=== PATIENT | male | born 1950 | race Caucasian/White ===

== ENCOUNTER 2017-01-31 08:55 | Day surgery (SDC) | payer MEDICARE, OTHER ==
[~2017-01-31] VITALS: Ht 160 cm; Wt 64.9 kg
[~2017-01-31 08:55] MED LIST: ABILIFY5 MG PO; AMBIEN5 MG PO; CELEXA20 MG PO; CLONAZEPAM0.5 MG PO; LAMICTAL100 MG PO; LIPITOR40 MG PO; LISINOPRIL20 MG PO; OMEPRAZOLE20 M1 PO; PROPRANOLOL HCL10 MG PO; TAMSULOSIN HCL0.4 MG PO; TRAZODONE HCL100 MG PO; WELLBUTRIN XL300 MG PO; ZOFRAN ODT4 MG PO
[2017-01-31] MEDS ORDERED: BUPROPION XL300 MG PO (09:19)
--- NOTE | 2017-01-31 11:34 | NUR ---
01/31/17 1134 Jocelyne Linn 1125 PT ARRIVED IN PACU SLEEPY. ICE APPLIED TO ABD.
[2017-01-31] MEDS ORDERED: NORCO 7.5-3251 EACH PO (11:48)
--- NOTE | 2017-01-31 15:29 | NUR ---
1215: PATIENT BACK IN DAY SURGERY ROOM FROM PACU. VS CHECKED. ABDOMINAL DRESSINGS CDI. SCDs ON. AT BEDSIDE. CALL LIGHT WITHIN REACH. 1320: PATIENT MEDICATED FOR PAIN WITH 2 TABS OF NORCO. PATIENT TOLERATED WATER, PUDDING, AND JELLO. 1405: PATIENT CONTINUES TO C/O 6/10 PAIN IN ABDOMEN. MEDICATED WITH IV DILAUDID. 1425: PATIENT STATES PAIN A LITTLE BETTER AFTER DILAUDID ADMIN. ICE PACK REFILLED. SCANT AMOUNT OF RED DRAINAGE SEEN ON TWO ABDOMINAL DRESSINGS. AT BEDSIDE. SCDs ON. TOLERATING WATER. IV SALINE LOCKED. CALL LIGHT WITHIN REACH. 1520: PATIENT UP TO BATHROOM WITH ASSIST. GAIT STEADY. UNABLE TO VOID. BLADDER SCANNED PT FOR APPROXIMATELY 334 ML. PATIENT STATES HE DOES NOT FEEL LIKE HIS BLADDER IS FULL. STATES HE WANTS TO DRINK MORE WATER AND WAIT TO SEE IF HE CAN VOID LATER.
--- NOTE | 2017-01-31 16:46 | NUR ---
pt chi krause says he hasnt urinated yet. not uncomfortable . bladder scanned 296ml. enc to relax and wait.
--- NOTE | 2017-01-31 17:12 | NUR ---
PT WANTS TO GO HOME. INSTRUCTED IF HE GETS UNCOMFORTABLE AND CANT URINATE HE WILL HAV ETO RETURN TO ED.
--- NOTE | 2017-01-31 17:27 | NUR ---
DR CERVANTES CALLED AND OK TO SEND PT HOME. TO RETURN TO ED IF PROBLEMS URINATING.
--- NOTE | 2017-02-01 11:54 | OR ---
[facility] [address], [place] [address] Signed DATE OF SERVICE: 01/31/2017 PREOPERATIVE DIAGNOSES: Cholecystitis and cholelithiasis. POSTOPERATIVE DIAGNOSES: Cholecystitis with choledocholithiasis. PROCEDURES PERFORMED: Laparoscopic cholecystectomy with intraoperative cholangiogram. ESTIMATED BLOOD LOSS: None. FINDINGS: Jimmie had a very friable gallbladder wall, he had multiple 1-2 mm black gallstones in the gallbladder. The intraoperative cholangiogram also showed several stones in the distal common bile duct. Some contrast did flow into the ampulla and into the duodenum. INDICATIONS: Jimmie is a 66-year-old gentleman who went to the Emergency Room with epigastric abdominal pain and elevated liver function test. Ultrasound showed what was probably a fatty liver and stones within the gallbladder. There seemed to be a 1.5 cm non-shadowing focus in his gallbladder. We looked for that and we never could convince ourselves was such a lesion in the gallbladder. His main bile duct was unremarkable. He was asked to see me with respect to the above. I met with Jimmie in the office and I gave him a brochure on the gallbladder. We discussed the location of function of the gallbladder. We discussed laparoscopic versus open cholecystectomy. He understands the expected intraoperative and postoperative course, the risk related to surgery including, but not limited to bleeding, infection, scarring, change in contour of the skin, damage to bowel, damage to main bile duct, incisional hernias, and possible retained common bile duct stones, requiring ERCP. He had expressed understanding and wished to proceed. PROCEDURE IN DETAIL: Jimmie was taken into the Operating Room and placed in the supine position under general endotracheal tube anesthesia. He was given preoperative antibiotics along with subcutaneous heparin. SCDs were utilized. He was then prepped and draped in the usual sterile fashion. After this, all trocars were placed in their usual positions under direct visualization of camera without difficulty. The gallbladder was grasped and elevated in the right upper quadrant. The findings are as above. We did take pictures throughout for photodocumentation. We found the gallbladder wall to be quite friable and it was easily peeling off the side of the liver. With gentle traction, we did dissect the triangle of BALA. We placed our intraoperative cholangiocatheter into the cystic duct and the intraoperative cholangiogram was performed. After this, the cystic duct stump was secured at the PDS Endoloop and 2 clips were placed on the cystic duct stump to sonja Electronically Signed By: PONCHO CERVANTES MD 02/01/17 1154 PATIENT NAME: JIMMIE CAIN II OPERATIVE REPORT DATE OF : 46 PHYSICIAN: PONCHO CERVANTES MD REPORT #: [id number] REPORT IS CONFIDENTIAL AND NOT TO BE RELEASED WITHOUT AUTHORIZATION [facility] [address], [place] [address] Signed its location. We then carefully and slowly removed the gallbladder from the gallbladder wall with the help of judicious cautery. The gallbladder was then placed into an EndoCatch bag. The right upper quadrant gallbladder fossa was irrigated and suctioned out until clear. We used our laparoscopic suturing device and passed 0 Vicryl suture on either side of the fascia of the subxiphoid trocar site. This was tied down to close this fascia primarily. After this, all the trocars were removed along with the gallbladder. The gallbladder was opened on the back table by a circulating nurse and we found that again it has chronic inflammation and quite friable, there were innumerable small black gallstones. We never found a specific 1.5 cm non-shadowing lesion on the gallbladder wall. We then closed the fascia of the supraumbilical trocar site with interrupted 0 Vicryl sutures. Local anesthetic was injected into all trocar sites. Each trocar site was irrigated and suctioned out until clear. The skin and dermis of each trocar site was closed with interrupted 3-0 subcuticular Monocryl sutures. Dry gauze and tape was then applied. Jimmie was then awakened from his anesthesia, extubated in the OR, and taken to Recovery Room in stable condition. MD SUNG Hawley/Modl /[id number] cc: [place], [place] MD Mell Hawley M.D Electronically Signed By: PONCHO CERVANTES MD 02/01/17 1154 PATIENT NAME: JIMMIE CAIN II OPERATIVE REPORT DATE OF : 46 PHYSICIAN: PONCHO CERVANTES MD REPORT #: [id number] REPORT IS CONFIDENTIAL AND NOT TO BE RELEASED WITHOUT AUTHORIZATION
== END 2017-01-31 17:20 | disposition home or self-care (01) ==
LOC: DS 08:55
PROVIDERS: Colon & Rectal Surgery
PROC: BF13YZZ Fluoroscopy of Gallbladder and Bile Ducts using Other Contrast (ICD-10-PCS; 2017-01-31)
PROC: 0FT44ZZ Resection of Gallbladder, Percutaneous Endoscopic Approach (ICD-10-PCS; principal; 2017-01-31 10:15)
DX: K80.10 Calculus of gallbladder with chronic cholecystitis without obstruction (principal); I10 Essential (primary) hypertension; E78.5 Hyperlipidemia, unspecified; F31.9 Bipolar disorder, unspecified; I34.8 Other nonrheumatic mitral valve disorders; Z79.899 Other long term (current) drug therapy; Z98.890 Other specified postprocedural states; Z82.49 Family history of ischemic heart disease and other diseases of the circulatory system
CPT/HCPCS: 00790; 74300; 88304; J0694; J1644; J1885; J3010; J7120; Q9967

== ENCOUNTER 2017-01-31 23:12 | Emergency (ER) | payer MEDICARE, OTHER ==
[~2017-01-31] VITALS: Ht 160 cm; Wt 64.9 kg
[~2017-01-31 23:12] MED LIST changes: +BUPROPION XL300 MG PO; +NORCO 7.5-3251 EACH PO
[2017-02-02] MEDS ORDERED: PERCOCET 10-321 EACH PO (13:44)
[2017-02-02] MEDS ORDERED: MIRALAX17 GM PO (13:45)
== END 2017-02-01 01:25 | disposition home or self-care (01) ==
LOC: ED 23:12
PROC: 4A0D7LZ Measurement of Urinary Volume, Via Natural or Artificial Opening (ICD-10-PCS; principal; 2017-01-31)
PROC: 0T9B70Z Drainage of Bladder with Drainage Device, Via Natural or Artificial Opening (ICD-10-PCS; principal; 2017-01-31)
DX: R33.9 Retention of urine, unspecified (principal); F41.9 Anxiety disorder, unspecified; Z90.49 Acquired absence of other specified parts of digestive tract; I10 Essential (primary) hypertension
CPT/HCPCS: 51702; 51798; 81001; 99283

== ENCOUNTER 2017-02-01 06:06 | Observation (INO) | payer MEDICARE, OTHER ==
[~2017-02-01] VITALS: Ht 160 cm; Wt 69.1 kg
--- NOTE | 2017-02-02 07:59 | CONS ---
[facility] [address] [place], [place] [address] Signed DATE OF SERVICE: 02/01/2017 REFERRING PHYSICIAN: Dr. Aspen Tello. CHIEF COMPLAINT: Postoperative abdominal pain. HISTORY OF PRESENT ILLNESS: Jimmie is a 76-year-old gentleman, who came to us yesterday for a routine laparoscopic cholecystectomy. He does have several small stones down in his main bile duct. He had been discharged to home, but came back to the emergency room in the middle of night with urinary retention. A Erazo catheter had been inserted. He had gone back home, but unfortunately would only accept 1 hydrocodone tablet 7.5 mg in strength. He would not take two. He was in pain and he and his had been up all night. His had called the ambulance and had him come and bring him back to the emergency room. In emergency room, he was given some Dilaudid, which controlled his pain and he subsequently went to sleep. The ER doctor called me first thing this morning with respect to the above. We decided to bring him back into the hospital for observations. He and his slept all morning. I decided to wait and come in a little later than usual to give them that opportunity to sleep. In the emergency room, we did not repeat any of the lab work or any x-rays at that time. He seems to be much improved at this point. ALLERGIES: None. MEDICATIONS: Abilify, Lipitor, Lamictal, lisinopril, propranolol, trazodone, zolpidem, tamsulosin, omeprazole, clonazepam, bupropion, and [place] 7.5 mg. PAST MEDICAL HISTORY: Peptic ulcer disease, hypertension, anxiety and cholecystitis with choledocholithiasis. PAST SURGICAL HISTORY: Left ankle surgery, right carpal tunnel and laparoscopic cholecystectomy 01/31/2017. SOCIAL HISTORY: He is . Lives with his . Mell Vences is physician's inventory assistant. He prefers the [facility]. He is a retired state attorney. FAMILY HISTORY: None. REVIEW OF SYSTEMS: He had 10 systems reviewed, and the only issues are the urinary tension and his postoperative pain. Of course, he is now worried about his chronic medications. PHYSICAL EXAMINATION: Electronically Signed By: PONCHO CERVANTES MD 02/02/17 0759 PATIENT NAME: JIMMIE CAIN II CONSULTATION DATE OF : 46 PHYSICIAN: PONCHO CERVANTES MD REPORT #: [id number] REPORT IS CONFIDENTIAL AND NOT TO BE RELEASED WITHOUT AUTHORIZATION [facility] [address] [place], [place] [address] Signed VITAL SIGNS: His blood pressure is 127/62, his heart rate is 82, his respiratory rate is 15, his temperature is 98.0. He is 94% on 2 L nasal cannula. GENERAL: Jimmie is a 66-year-old gentleman lying supine in his hospital bed. He is alert, awake and interactive. He is clearly coherent this morning. According to his , he was pretty confused last night. LUNGS: Clear to auscultation. HEART: Regular rate and rhythm. ABDOMEN: Moderately distended, moderately firm, but generally nontender. There was a little bit of dried sanguinous fluid on his umbilical dressing, but otherwise fine. LABORATORY DATA: None. X-RAYS: None. ASSESSMENT AND PLAN: Jimmie is a 66-year-old gentleman who presents after his gallbladder surgery yesterday with retained common bile duct stones. However, some of the contrast did go around the stones. He did have urinary retention and he has a history of prostate cancer. He required a Erazo catheter and we will leave that today. Also, the pain control has been an issue and so we are going to bump him up the [place] 10s and we will encourage him to take 2 tablets if necessary. We will keep him here today and increase his activities, remove his dressings and allow him to take a shower. Tomorrow morning, we will discontinue the Erazo catheter and if he is able to spontaneously void, then we will let him go home. Otherwise, he will need the Erazo catheter reinserted and he will have to follow up with his urologist, Dr. Abel painting in the [facility]. In addition, he will need an outpatient ERCP probably next week some time as well, which we will have to arrange later. He has expressed understanding and agrees with above plan. MD SUNG Hawley/Radhal /[id number] cc: Mell Cervantes MD Electronically Signed By: PONCHO CERVANTES MD 02/02/17 0759 PATIENT NAME: JIMMIE CAIN II CONSULTATION DATE OF : 46 PHYSICIAN: PONCHO CERVANTES MD REPORT #: [id number] REPORT IS CONFIDENTIAL AND NOT TO BE RELEASED WITHOUT AUTHORIZATION
[2017-02-02] MEDS ORDERED: PERCOCET 10-321 EACH PO (13:44)
[2017-02-02] MEDS ORDERED: MIRALAX17 GM PO (13:45)
--- NOTE | 2017-02-08 19:54 | DS ---
[facility] [address] [place], [place] [address] Signed ADMIT DATE: 02/01/2017 DISCHARGE DATE: 02/02/2017 FINAL DIAGNOSES: Postoperative pain. Postoperative urinary retention. Choledocholithiasis. Anxiety. PROCEDURES: Placement of Erazo catheter. HISTORY OF PRESENT ILLNESS: Jimmie is a 66-year-old gentleman who came to us today of admission for his elective gallbladder surgery. Things went well. We can see he has several stones in the distal common bile duct. However, the contrast did flow past the stones. Consequently, we allowed h im to be discharged to home with plans for an outpatient ERCP. He returned later that evening to the emergency room with urinary retention. He does have a history of prostate cancer. He follows along with Dr. Roman in the [facility]. He had a Erazo catheter placed and was discharged back to home from the emergency room. However, at home, he would only take 1 pain pill for the reasons that still are clear. He refuses to take 2 pain pills. Consequently, he was having pain, and finally, his brought him b ack to the emergency room. He was given some Dilaudid and that corrected the pain quite nicely. By that point, it was early in the morning. We went ahead and admitted him for observation. HOSPITAL COURSE: Jimmie was admitted as above and we left his Erazo catheter in for 1 day. We increased him from the hydrocodone 5 mg tablets up to the Percocet 10 mg tablets here in the hospital. Interestingly, he still will only take 1 pain pill at a time. The Percocet 10 mg tablets are lasting him almost 4 hours. In addition, we resumed his earlier regular diet and all his chronic medications. He has done well in that regard. He has been up ambulating and tolerating his diet at this point. He has had a little bit of flatus but no bowel movement. His abdomen is still a li t tle distended. This morning, we are going to remove his Erazo catheter and wait for him to void before he is discharged back to home. We will continue his IV fluids and his current medications and diet throughout the day. We are going to go ahead and give him some Dulcolax by mouth. We will also add some MiraLAX as well. If he is able to spontaneously void later today then, we will be able to discharge him to home. Electronically Signed By: PONCHO CERVANTES MD 02/08/171953 PATIENT NAME: JIMMIE CAIN II DISCHARGE SUMMARY DATE OF : 46 PHYSICIAN: PONCHO CERVANTES MD REPORT #: [id number] REPORT IS CONFIDENTIAL AND NOT TO BE RELEASED WITHOUT AUTHORIZATION [facility] [address] [place], [place] [address] Signed DISCHARGE PLANS AND MEDICATIONS: Jimmie will be discharged home with a prescription for his Percocet 10/325 one to two tablets p.o. q.4-6h. p.r.n. pain. We will dispense 60 tablets with no refills. Once he finishes the Percocet, he can certainly switch over to the hydrocodone. I have also wrote down MiraLAX 17 g p.o. b.i.d. and clear liquids, so he can use that at least while he is taking the pain medication. He will continue his chronic medications at home and a regular diet. He is welcome to shower and bathe as usual. He can walk up and down stairs but he should not do any heavy pushing, pulling, or lifting over about 25 pounds. We are going to make arrangements for him for his outpatient ERCP and he will follow up with Dr. Roman for the prostate cancer. He has expressed understanding and agrees above plan. MD SUNG Hawley/Barb /[id number] cc: MD Mell Hawley Dr. Electronically Signed By: PONCHO CERVANTES MD 02/08/171953 PATIENT NAME: JIMMIE CAIN II DISCHARGE SUMMARY DATE OF : 46 PHYSICIAN: PONCHO CERVANTES MD REPORT #: [id number] REPORT IS CONFIDENTIAL AND NOT TO BE RELEASED WITHOUT AUTHORIZATION
== END 2017-02-02 14:45 | disposition home or self-care (01) ==
LOC: ED 06:06 → MS 06:11
PROVIDERS: ADMIT Colon & Rectal Surgery
DX: G89.18 Other acute postprocedural pain (principal); F41.9 Anxiety disorder, unspecified; R33.8 Other retention of urine; K91.86 Retained cholelithiasis following cholecystectomy; I10 Essential (primary) hypertension; Z87.891 Personal history of nicotine dependence; Z85.46 Personal history of malignant neoplasm of prostate; Z79.899 Other long term (current) drug therapy; Z87.11 Personal history of peptic ulcer disease
CPT/HCPCS: 51798; 96372; 99285; G0378; J1644; J7120

== ENCOUNTER 2022-11-12 06:55 | Day surgery (SDC) | payer MEDICARE, OTHER ==
[2022-11-07 09:10] VITALS: BP 141/73
[~2022-11-12] VITALS: Ht 160 cm; Wt 68.2 kg
[~2022-11-12 06:55] MED LIST changes: +ASPIRIN EC81 MG PO; +ATIVAN1 MG PO; +ATORVASTATIN CA40 MG PO; +C-500500 MG PO; +DOK100 MG PO; +ELIQUIS2.5 MG PO; +FEOSOL325 MG PO; +FIBER625 MG PO; +KRILL OIL 1,001 EAC1 PO; +LAMICTAL200 MG PO; +LASIX40 MG PO; +LIPITOR20 MG PO; +LOPERAMIDE2 MG PO; +METOPROLOL TART25 MG PO; +MIRALAX17 GM PO; +MULTI-DAY PLUS1 EAC1 PO; +PERCOCET 10-321 EACH PO; +PROBIOTIC1 EAC5 PO; -TRAZODONE HCL100 MG PO; +TRAZODONE HCL50 MG PO; +WARFARIN SODIUM2 MG PO; +ZESTRIL20 MG PO
[2022-11-12 07:10] VITALS: BP 133/67
--- NOTE | 2022-11-12 09:32 | NUR ---
11/12/22 0932 Annabella Lau 0915 PT ARRIVED TO PACU ON 3L VIA NC, PT ASLEEP WITH LARGE AMOUNT OF SNORING NOTED. PT HEAD ADJUSTED AND PILLOW MOVED, LESS SNORING NOTED. 09 PT WAKES AND IS REORIENTED TO PACU, PT IS ENCOURAGED TO PASS GAS AND DENIES PAIN AND NAUSEA. 0930 MD AT BEDSIDE TALKING TO PT. PLAN OF CARE DISCUSSED.
[2022-11-12 09:43] VITALS: BP 135/75
--- NOTE | 2022-11-12 10:57 | NUR ---
PT ALERT, ORIENTED AND SUPPORTED BY HER DAMARIS WHO WILL RETURN FOR DC. PT HAS HAD SCOPE PREVIOUS. GAVE ENCOURAGEMENT AND BLESSING. PT REQUESTED PRAYER
--- NOTE | 2022-11-12 13:19 | OR ---
[facility] [address] [place], [place] [address] Signed DATE OF OPERATION: 11/12/2022 SURGEON: Marcel Patel MD PREOPERATIVE DIAGNOSIS: History of polyps greater than five years ago. POSTOPERATIVE DIAGNOSES: 1. Small polyps of cecum and ascending colon and sigmoid colon. 2. Diverticulosis. PROCEDURE: Total colonoscopy to cecum with cold snare polypectomy x1 and cold morcellation polypectomy x5. ANESTHESIA: Intravenous sedation, propofol infusion, William Brody CRNA. Preoperative antibiotic, ampicillin, gentamicin, and a bridge therapy. INDICATION: This 72-year-old white man is a patient of Escobar Wilson. He underwent colonoscopy greater than five years ago by Dr. Francisco Javier Lua, which showed two polyps. He has no family history of colon cancer. He has a distant history (2015) of common bile duct injury during cholecystectomy in [place] requiring advanced reconstructive intervention and prolonged hospitalization. He additionally has underlying probable paroxysmal atrial fibrillation and prior history of mitral valve replacement. He is chronically anticoagulated with Eliquis. He does have diarrhea requiring loperamide. He additionally has had prostate cancer treatments this year including radiation therapy. He is admitted to undergo surveillance colonoscopy. He understands the risk of bleeding, infection, and perforation. He has been initiated on bridge therapy off Eliquis for at least three days as well as preoperative antibiotic ampicillin and gentamicin related to the mitral valve replacement. FINDINGS: The prep was adequate. Complete colonoscopy was undertaken of the cecum. There were small polyps in the proximal ascending colon and the cecum, three of which were able to be excised. The other could not be due to anatomic factors and patient tolerance. Electronically Signed By: MARCEL PATEL MD 11/12/22 1319 PATIENT NAME: DAY CAIN II OPERATIVE REPORT DATE OF : 46 REPORT #: [id number] PHYSICIAN: MARCEL PATEL MD PCP: ESCOBAR WILSON PA-C REPORT IS CONFIDENTIAL AND NOT TO BE RELEASED WITHOUT AUTHORIZATION [facility] [address] [place], [place] [address] Signed There were additionally small polyps of the sigmoid, two of which were hyperplastic, one was adenomatous, excised with cold snare. A biopsy was taken of the cecum to assess for occult colitis. DESCRIPTION OF PROCEDURE: The patient was brought to the surgical endoscopy suite and placed in the lateral decubitus position, given intravenous sedation with propofol infusional technique. Digital rectal examination was normal. An Olympus video colonoscope was passed in the rectum and manipulated throughout the colon ultimately intubating the right colon. Visualization of the cecum was noted. A biopsy forceps was used to biopsy the cecum on the basis of possibility of occult colitis. Various maneuvers including abdominal wall stabilization were used to advance the scope fully into the cecum where a small polyp was noted. Attempts at excising it were interrupted by the patient's activity and ultimately that tiny polyp could not be excised actually. The scope was withdrawn and a small polyp was noted of the ascending colon which was excised with cold morcellation technique. Another small polyp again was not able to be fully excised related to the patient movement, straining and so forth. Ultimately, further attempts at excising the small polyp had to be abandoned on the possibility of hazard with the scope. The scope was then withdrawn and the remaining colon was examined more fully. In the sigmoid, there was a small sessile polyp excised with cold snare technique and passed for pathology and at least two other small hyperplastic appearing polyps of the rectosigmoid. The rectum appeared normal otherwise. The scope was removed and the patient was taken to the recovery room in good condition. CONCLUSION DIAGNOSIS: Multiple polyps and scattered diverticula of sigmoid. PLAN: We would recommend repeat colonoscopy in 1 to 2 years based on known residual tiny polyps of right colon. MD KARINE Doss/MODL /[id number] Electronically Signed By: MARCEL PATEL MD 11/12/22 1319 PATIENT NAME: DAY CAIN II OPERATIVE REPORT DATE OF : 46 REPORT #: [id number] PHYSICIAN: MARCEL PATEL MD PCP: ESCOBAR WILSON PA-C REPORT IS CONFIDENTIAL AND NOT TO BE RELEASED WITHOUT AUTHORIZATION [facility] [address] [place], [place] [address] Signed cc: SHAMAR Cardoso Copies: ~ Electronically Signed By: MARCEL PATEL MD 11/12/22 1319 PATIENT NAME: DAY CAIN DVAID OPERATIVE REPORT DATE OF : 46 REPORT #: [id number] PHYSICIAN: MARCEL PATEL MD PCP: ESCOBAR WILSON PA-C REPORT IS CONFIDENTIAL AND NOT TO BE RELEASED WITHOUT AUTHORIZATION
--- NOTE | 2022-11-12 15:11 | EKG ---
[facility] [address] [facility] [place] [address] Signed Sinus rhythm with premature supraventricular complexes Nonspecific ST abnormality Abnormal ECG When compared with ECG of 07-NOV-2022 08:15, Sinus rhythm has replaced Junctional rhythm ST elevation now present in Inferior leads Confirmed by SHIV ZAPATA MD ([id number]) on 11/12/2022 3:10:51 PM Electronically Signed By: SHIV ZAPATA MD 11/12/22 1511 PATIENT NAME: PAYTONDAY II Electrocardiogram DATE OF : 46 PHYSICIAN: SHIV ZAPATA MD REPORT #: [id number] REPORT IS CONFIDENTIAL AND NOT TO BE RELEASED WITHOUT AUTHORIZATION
== END 2022-11-12 09:55 | disposition home or self-care (01) ==
LOC: OPS 06:55 → DS 06:55 → OPS 08:15 → DS 10:30
PROVIDERS: ATTEND Surgery
PROC: 0DBN8ZZ Excision of Sigmoid Colon, Via Natural or Artificial Opening Endoscopic (ICD-10-PCS; 2022-11-12)
PROC: 0DBH8ZZ Excision of Cecum, Via Natural or Artificial Opening Endoscopic (ICD-10-PCS; 2022-11-12)
PROC: 0DBK8ZZ Excision of Ascending Colon, Via Natural or Artificial Opening Endoscopic (ICD-10-PCS; principal; 2022-11-12 08:15)
DX: Z12.11 Encounter for screening for malignant neoplasm of colon (principal); I48.0 Paroxysmal atrial fibrillation; Z79.01 Long term (current) use of anticoagulants; I10 Essential (primary) hypertension; C61 Malignant neoplasm of prostate; Z86.010 Personal history of colon polyps; Z95.2 Presence of prosthetic heart valve; K57.30 Diverticulosis of large intestine without perforation or abscess without bleeding; D12.2 Benign neoplasm of ascending colon; K63.5 Polyp of colon
CPT/HCPCS: 93005; 93010; J0290; J1580; J2001; J2704

== ENCOUNTER 2023-02-05 05:55 | Day surgery (SDC) | payer MEDICARE, OTHER ==
[2023-02-04 14:17] VITALS: BP 143/76
[~2023-02-05] VITALS: Ht 160 cm; Wt 68.2 kg
[2023-02-05 07:01] VITALS: BP 132/63
--- NOTE | 2023-02-05 07:06 | NUR ---
PT IN OVERALL GOOD SPIRITS. CONSENTED TO PRAYER. PRAYED FOR SUCCESSFUL PROCEDURE AND AWARENESS OF DIVINE PRESENCE.
--- NOTE | 2023-02-05 10:15 | NUR ---
02/05/23 1015 Hue Lozada 1001-PT TO PACU IN SF POSITION. EYES CLOSED. RESPODNS TO VERBAL STIMULI. PT DENIES PAIN AND NAUSEA AND FALLS BACK TO SLEEP. BREATHING EASY AND UNLABORED. SPO2 >95% ON ROOM AIR. 1007-PT SLEEPING COMFORTABLY, WITH SNORING. SPO2 88% WITH SNORING. PT AWAKENS TO LIGHT VERBAL STIMULI AND SPO2 RAISES TO >95%. PT EDUCATED ON POC FOR PACU AND ENCOURAGED TO TAKE DEEP BREATHS. RETURN DEMONSTRATION OBSERVED. 1014- PT AWAKENS SPONTANEOUSLY. BREATHING EASY AND UNLABORED. SPO2 >95% ON ROOM AIR. PT OFFERED SIPS OF WATER.
[2023-02-05 10:48] VITALS: BP 134/57
[2023-02-05 11:20] VITALS: BP 151/67
--- NOTE | 2023-02-05 12:26 | NUR ---
1025: PT RETURNS TO UNIT FROM PACU. AWAKE AND ALERT ON ARRIVAL. HOLDS APPROPRIATE CONVERSATION. VSS, RESP EVEN AND UNLABORED. BREONNA PO AND DENIES NAUSEA. REPORTS 5/10 PAIN LEVEL AND REQUESTS RX. ADMINISTERED ORDERED. REPORTS URGE TO VOID. DANGLES AT THE BEDSIDE. BREONNA WELL, DENIES DIZZINESS AND SOB. USES BEDSIDE URINAL FOR FIRST SUCCESSFUL POSTOP VOID, 100MLS. PT COMFORTABLE IN STRETCHER. DENIES FURTHER NEEDS, CALL LIGHT WITHIN REACH 1120: WATCHES TV IN STRETCHER. VSS, RESP EVEN AND UNLABORED. REPORTS IMPROVED AND TOLERABLE PAIN LEVEL, 3/10. INQUIRES ABOUT DC PAIN RX. NONE WRITTEN BY MD JEMAL. TC PLACED TO JEMAL AND THIS RN TO INSTRUCT PT TO TRY TYLENOL AND MOTRIN FIRST AND IF PAIN IS UNCONTROLLED CALL OFFICE. PT VOICES UNDERSTANDING WHEN DISCUSSED. REPORTS READINESS TO DC. DRESSES INDEPENDENTLY AND NOTIFIED 1155: DC INSTRUCTIONS PROVIDED AND DISCUSSED AND PT VOICES UNDERSTANDING AND DENIES QUESTIONS AND CONCERNS. SL REMOVED WITH CATH TIP INTACT AND PRESSURE APPLIED TO SITE, WNL. WHEELED OFF OF UNIT BY THIS RN. TRANSFERS INTO VEHICLE INDEPENDENTLY AND APPROPRIATELY. NO PHYSICAL S/S OF DISTRESS AT THIS TIME
--- NOTE | 2023-02-06 17:08 | OR ---
[facility] [address] [place], [place] [address] Signed DATE OF OPERATION: 02/05/2023 SURGEON: Soumya Russell MD PREOPERATIVE DIAGNOSIS: Prostate cancer with need for cystoscopy after undergoing brachytherapy seed placement. POSTOPERATIVE DIAGNOSES: 1. Prostate cancer with need for cystoscopy after undergoing brachytherapy seed placement. 2. Normal cystourethroscopy. NAME OF PROCEDURE: Diagnostic cystoscopy. ANESTHESIA: General. ESTIMATED BLOOD LOSS: None. COMPLICATIONS: None. DRAINS: None. INDICATIONS FOR PROCEDURE: Mr. Cain is a 72-year-old gentleman, who was recently diagnosed with prostate cancer. He is currently undergoing transperineal brachytherapy seed placement by Dr. Samuel Wilson. Dr. Wilson has requested that I perform a postprocedural diagnostic cystoscopy to evaluate for any potential radioactive seeds within the bladder or urethra. OPERATIVE FINDINGS: 1. On cystoscopy, there was no evidence of any suspicious masses, lesions, or stones. Bilateral ureteral orifices are in their normal anatomic location effluxing clear urine. More specifically, there is no evidence of any radioactive seed present within the bladder or within the entire length of the urethra. 2. Urethroscopy reveals moderate lateral lobe hypertrophy with no evidence of any significant median lobe, however, there is a small median bar present that is most Electronically Signed By: SOUMYA RUSSELL MD 02/06/23 1708 PATIENT NAME: DAY CAIN II OPERATIVE REPORT DATE OF : 46 REPORT #: [id number] PHYSICIAN: SOUMYA RUSSELL MD PCP: ESCOBAR PERES PA-C REPORT IS CONFIDENTIAL AND NOT TO BE RELEASED WITHOUT AUTHORIZATION [facility] [address] [facility] [place] [address] Signed notable on retroflexion. DESCRIPTION OF PROCEDURE: After informed consent was obtained, the patient was taken back to the operating room to undergo the brachytherapy seed placement. Please refer to Dr. Wilson's note for details. While he was still under general anesthetic after the procedure was completed, his genitalia were prepped and draped in standard sterile fashion. I inserted a flexible cystoscope through the urethra into the bladder under direct visualization. Panendoscopic views of the bladder and entire length of the urethra were then visualized. Please see above findings. Overall, I did not see any evidence of any radioactive seed within the bladder or within the entire length of the urethra. I slowly withdrew the camera and then removed the camera from the patient's urethra. The procedure was then terminated. The patient tolerated this portion of the procedure well without any complication. He will now be transferred to the postanesthesia care unit in stable condition. MD ABHISHEK Dotson/GENESIS /[id number] Copies: ~ Electronically Signed By: SOUMYA RUSSELL MD 02/06/23 1708 PATIENT NAME: DAY CAIN II OPERATIVE REPORT DATE OF : 46 REPORT #: [id number] PHYSICIAN: SOUMYA RUSSELL MD PCP: ESCOBAR PERES PA-C REPORT IS CONFIDENTIAL AND NOT TO BE RELEASED WITHOUT AUTHORIZATION
--- NOTE | 2023-02-11 08:31 | OR ---
[facility] [address] [facility] [place] [address] Signed DATE OF OPERATION: 02/05/2023 SURGEON: Tessa Wilson MD, PH.D. PREOPERATIVE DIAGNOSIS: Prostate adenocarcinoma. POSTOPERATIVE DIAGNOSIS: Prostate adenocarcinoma. PROCEDURE: Rectal ultrasound-guided implantation of radioactive iodine-125 seeds into the prostate gland. ANESTHESIA: General. ESTIMATED BLOOD LOSS: Minimal. COMPLICATIONS: None. ANTIBIOTICS: IV levofloxacin. INDICATIONS: Jimmie Cain is a 72-year-old gentleman, who was initially diagnosed with a low-risk prostate cancer in 2016. He pursued active surveillance, but a repeat prostate biopsy in 2019 demonstrated a Anita grade 3 + 4 equals 7 disease. His PSA mj to 11.5 by April 05, 2022. Another prostate biopsy was performed on May 29, 2022 demonstrating [place] grade 4 + 3 equals 7 prostate cancer. The patient received neoadjuvant, concurrent, and adjuvant hormone therapy along with radiation therapy to a dose of 45 Gy to the pelvic lymph nodes, seminal vesicles, and prostate gland ending on December 18, 2022. He is receiving this radioactive seed implant to provide a boost dose of radiation to his prostate gland. PRESCRIPTION DOSE: 110 Gy with iodine-125 seeds with 0.258 mCi seeds. Electronically Signed By: TESSA WILSON 02/11/23 0831 PATIENT NAME: JIMMIE CAIN II OPERATIVE REPORT DATE OF : 46 REPORT #: [id number] PHYSICIAN: TESSA WILSON PCP: ESCOBAR WILSON PA-C REPORT IS CONFIDENTIAL AND NOT TO BE RELEASED WITHOUT AUTHORIZATION [facility] [address] [place], [place] [address] Signed OPERATIVE DESCRIPTION: Following induction of adequate anesthesia, the patient was placed in the treatment planning dorsal lithotomy position. The perineum was prepped with Betadine and a Erazo catheter was inserted into the bladder without difficulty. The scrotum was elevated onto the abdominal wall and secured with Ioban. The fixation support system was fixed to the table and the ultrasound probe was affixed to the system. Transrectal ultrasound examination of the prostate was performed with a 6 megahertz probe, taking sagittal and transverse views to localize the prostate gland and to make sure the images conformed to the preoperative plan. Once the proper angulation and position were obtained, the apparatus was fixed in position, and the template was then attached to the apparatus. Then, individual preloaded needles were inserted, one needle at a time through the template and perineal skin and into the prostate gland according to the preoperative plan. Each individual needle was identified on the ultrasound images and inserted into position as close as possible to the pretreatment plan on axial images. Two anchor needles were placed initially to help stabilize the prostate gland. Then, starting anteriorly, one row of needles were placed first. The proper depth of each needle was then confirmed on sagittal images and also by measuring the distance from the template to the hub of each needle with a ruler. Then, needles were slowly withdrawn with the stylet in place so that the stranded seeds were placed in the prostate gland in the proper position. Then, subsequently rows of needles were placed, one at a time with placement of all the seeds from each row before proceeding to the next row. AP pelvic x-rays were taken periodically to confirm the proper position of the radioactive seeds. The treatment plan called for 69 seeds to be implanted. However, needles 21 and 22 were omitted, because the stranded seeds appear to be significantly longer than the length of the prostate gland in this area resulting in the potential for radioactive seeds to end up in the rectal hump. Instead, eight separate free seeds were placed in these needle positions at staggered depth to provide coverage of this area of the gland. Therefore, a total of 67 seeds were placed into the prostate gland using 29 needles for a total activity of 17.286 mCi. Initially, there was quite a bit of pubic arch interference anteriorly and laterally, but this was corrected by placing the patient in an exaggerated dorsal lithotomy position. Following the insertion of the seeds, an AP pelvic x-ray was taken, which revealed seeds to be in the proper position within the pelvis. The patient had a cystoscopy performed by Dr. Zhou (see separate operative report) with no seeds seen in the urethra or bladder. The patient tolerated the procedure well and was taken to the recovery room in good condition. He will have a voiding trial prior to discharge. Electronically Signed By: TESSA WILSON 02/11/23 0831 PATIENT NAME: JIMMIE CAIN II OPERATIVE REPORT DATE OF : 46 REPORT #: [id number] PHYSICIAN: TESSA WILSON PCP: ESCOBAR WILSON PA-C REPORT IS CONFIDENTIAL AND NOT TO BE RELEASED WITHOUT AUTHORIZATION [address] [address] Signed The patient will follow up with me in approximately one month and will have a CT scan of the pelvis performed for dosimetric evaluation. He was told to phone our office if he has any difficulties or problems. CONDITION: Stable. Tessa Wilson MD, PH.D. BETSY/MODL /[id number] cc: Luis Wilson PA-C Copies: LUIS DELUCA ~ Electronically Signed By: TESSA WILSON 02/11/23 0831 PATIENT NAME: JIMMIE CAIN DAVID OPERATIVE REPORT DATE OF : 46 REPORT #: [id number] PHYSICIAN: TESSA WILSON PCP: ESCOBAR WILSON PA-C REPORT IS CONFIDENTIAL AND NOT TO BE RELEASED WITHOUT AUTHORIZATION
== END 2023-02-05 11:55 | disposition home or self-care (01) ==
LOC: DS 05:55 → OPS 05:55 → EDSTATUS 07:00 → DS 07:00 → US 07:00 → OPS 07:00
PROVIDERS: Urology; ATTEND Radiology Radiation Oncology
PROC: 0VH071Z Insertion of Radioactive Element into Prostate, Via Natural or Artificial Opening (ICD-10-PCS; principal; 2023-02-05 07:30)
PROC: DV1 Radiation Therapy, Male Reproductive System, Brachytherapy (ICD-10-PCS; 2023-02-05 07:30)
DX: C61 Malignant neoplasm of prostate (principal)
CPT/HCPCS: 00860; 76000; 76873; 77470; C2638; J0131; J1100; J1956; J2001; J2371; J2405; J2704; J3010; J7121

== ENCOUNTER 2024-11-30 07:01 | Day surgery (SDC) | payer MEDICARE, OTHER ==
[2024-11-22 09:27] VITALS: BP 140/69
[~2024-11-30] VITALS: Ht 160 cm; Wt 75.0 kg
[~2024-11-30 07:01] MED LIST changes: +AMPICILLIN SOD 2 GM in SODIUM CHLORIDE 0.9% 100 ML IV SCH; +GENTAMICIN SULFATE 80 MG in DEXTROSE 5% 100 ML IV SCH; +IBLOOD GLUCOSE TEST STRIP 1 EA TEST VI PRN; +LACTATED RINGER'S 1,000 ML IV SCH; +LIDOCAINE HCL 1% 5 ML SDV INJ ONE
[2024-11-30 07:06] VITALS: BP 153/56
[2024-11-30] MEDS ORDERED: CO Q-1050 MG PO (07:10)
[2024-11-30] MEDS ORDERED: propofoL 200 MG/20 ML VIAL ONE ×3 (07:12→07:13)
[2024-11-30] MEDS ORDERED: LIDOCAINE HCL 2% 5 ML SDV ONE (07:12)
--- NOTE | 2024-11-30 08:39 | NUR ---
11/30/24 0839 Annabella Lau 0856 PT ARRIVED TO PACU ON RA, PT WAKES AND MOVES AROUND IN BED AND EASILY FALLS BACK TO SLEEP. 0835 MD AT BEDSIDE TALKING TO PT, PT REORIENTED TO PACU. PT ENCOURAGED TO PASS GAS NEEDED.
[2024-11-30 08:54] VITALS: BP 120/63
--- NOTE | 2024-12-01 13:13 | OR ---
[facility] [address] [place], [place] [address] Signed DATE OF OPERATION: 11/30/2024 SURGEON: Marcel Patel MD PREOPERATIVE DIAGNOSES: 1. History of polyps 2022. 2. Multiple medical problems. POSTOPERATIVE DIAGNOSIS: Small rectosigmoid polyp (excised) PROCEDURE: Total colonoscopy to cecum with cold morcellation polypectomy x1. ANESTHESIA: Intravenous sedation, propofol, Andree Bauer CRNA. INDICATIONS: This 74-year-old white man is a patient of SHAMAR Cardoso. He has a complex past medical history and ongoing numerous medical problems including history of knee replacement and mitral valve replacement in 2017, as well as distant history in 2016 of common bile duct injury, duodenal perforation and other abnormalities requiring extensive and prolonged therapy ultimately recovering. He underwent colonoscopy in October of 2022 where he had a tubular adenoma. A total of five additional polyps resected, only one of which was a tubular adenoma, the other hyperplastic. He has no family history of colon cancer. He was treated for prostate cancer in 2022, knee replacement in 2023, heart valve replacement in 2017. Although, he usually takes Eliquis, he is now on bridge therapy and is admitted at this time to undergo colonoscopy for surveillance. He understands the risk of bleeding, infection, and perforation and wished to proceed. FINDINGS: The prep was excellent. Complete colonoscopy was undertaken of the cecum with full intubation of the cecum. He had a small polyp at the rectosigmoid, which was excised with cold morcellation technique. The remaining colon was normal. DESCRIPTION OF PROCEDURE: The patient was brought to the endoscopy suite and placed in lateral decubitus position, given intravenous sedation with propofol infusional technique. Digital rectal Electronically Signed By: MARCEL PATEL MD 12/01/24 1313 PATIENT NAME: DAY CAIN II OPERATIVE REPORT DATE OF : 46 REPORT #: [id number] PHYSICIAN: MARCEL PAETL MD PCP: ESCOBAR PERES PA-C REPORT IS CONFIDENTIAL AND NOT TO BE RELEASED WITHOUT AUTHORIZATION [facility] [address] [place], [place] [address] Signed examination showed no specific abnormalities of the prostate area. An Olympus video colonoscope was passed in the rectum and manipulated throughout the colon ultimately intubating the cecum itself. The ileocecal valve and appendiceal orifice were normal. Scope was carefully withdrawn and examination throughout showed no sign of abnormality into the rectosigmoid where small polyp was noted. This was excised with cold morcellation technique. Further withdrawal allowed for retroflexed view of the rectum, which was normal. Scope was removed. The patient was taken to recovery room in good condition. CONCLUDING DIAGNOSIS: Polyps x1 now excised. PLAN: Recommend repeat colonoscopy in 7-10 years, sooner if symptoms should develop. He will return to the ongoing care of SHAMAR Cardoso. MD KARINE Doss/GENESIS /[id number] cc: SHAMAR Cardoso Copies: ~ Electronically Signed By: MARCEL PATEL MD 12/01/24 1313 PATIENT NAME: DAY CAIN OPERATIVE REPORT DATE OF : 46 REPORT #: [id number] PHYSICIAN: MARCEL PATEL MD PCP: ESCOBAR PERES PA-C REPORT IS CONFIDENTIAL AND NOT TO BE RELEASED WITHOUT AUTHORIZATION
--- NOTE | 2024-12-02 10:10 | PATH ---
[facility] [address] [place], [place] [address] Signed SPECIMEN(S): A SIGMOID POLYP SPECIMEN SOURCE: A. SIGMOID POLYP CLINICAL HISTORY: History of colon polyps FINAL PATHOLOGIC DIAGNOSIS: Colon, sigmoid, polypectomy: - Hyperplastic polyp BRP MICROSCOPIC EXAMINATION: Histologic sections of all submitted blocks are examined by light microscopy. These findings, together with the gross examination, support the pathologic diagnosis. GROSS DESCRIPTION: The specimen, labeled and designated "Bernardino, sigmoid polyp," is received in formalin and consists of one huber soft tissue fragment, 0.3 cm. Entirely submitted in (A1). VB (under the direct supervision of a pathologist) The Gross Description was prepared using a voice recognition system. The report was reviewed for accuracy; however, sound-alike word errors, addition and/or deletions may occur. If there is any question about this report, please contact Client Services. ADDITIONAL NOTES: Immunohistochemical and/or in situ hybridization studies if performed in this case included appropriate positive controls that reacted as expected. This test was developed and its performance characteristics determined by [facility]. It has not been cleared or approved by the U.S. Food and Drug Administration. The FDA has determined that such clearance or approval is not necessary. This test is used for clinical purposes. It should not be regarded as investigational or for research. [facility] is certified under the Clinical Laboratory Improvement Amendments of 1988 (CLIA) as qualified to perform high complexity clinical laboratory testing. PATIENT NAME: DAY CAIN [facility] PATHOLOGY DATE OF : 46 REPORT #: [id number] PHYSICIAN: ZAFAR GREENE PCP: ESCOBAR PERES PA-C REPORT IS CONFIDENTIAL AND NOT TO BE RELEASED WITHOUT AUTHORIZATION [address] [place] [address] Signed PERFORMING LABORATORY: Technical component was performed by [facility], [address] [place] [id number] (CLIA# [id number]). Professional interpretation was performed by [facility] [place] [address] (CLIA#: [id number]). Diagnostician: Adán Allan MD Pathologist Electronically Signed 12/02/2024 Copies: ~ PATIENT NAME: DAY CAIN II PATHOLOGY DATE OF : 46 REPORT #: [id number] PHYSICIAN: ZAFAR GREENE PCP: ESCOBAR PERES PA-C REPORT IS CONFIDENTIAL AND NOT TO BE RELEASED WITHOUT AUTHORIZATION
== END 2024-11-30 09:03 | disposition home or self-care (01) ==
LOC: DS 07:01
PROVIDERS: ATTEND Surgery
PROC: 0DBN8ZZ Excision of Sigmoid Colon, Via Natural or Artificial Opening Endoscopic (ICD-10-PCS; principal; 2024-11-30 09:00)
DX: Z12.11 Encounter for screening for malignant neoplasm of colon (principal); K63.5 Polyp of colon; I48.0 Paroxysmal atrial fibrillation; Z79.899 Other long term (current) drug therapy; Z86.0100 Personal history of colon polyps, unspecified; Z95.2 Presence of prosthetic heart valve
CPT/HCPCS: 00811; 88305; J0290; J1580; J2003; J2704; J7121

== ENCOUNTER 2025-01-28 22:38 | Emergency (ER) | payer OTHER, MEDICARE ==
[~2025-01-28] VITALS: Ht 160 cm; Wt 75.0 kg
[~2025-01-28 22:38] MED LIST changes: -AMPICILLIN SOD 2 GM in SODIUM CHLORIDE 0.9% 100 ML IV SCH; +CO Q-1050 MG PO; -GENTAMICIN SULFATE 80 MG in DEXTROSE 5% 100 ML IV SCH; -IBLOOD GLUCOSE TEST STRIP 1 EA TEST VI PRN; -LACTATED RINGER'S 1,000 ML IV SCH; -LIDOCAINE HCL 1% 5 ML SDV INJ ONE
[2025-01-28] MEDS ORDERED: MORPHINE SULFATE 4 MG/ML VIAL IV ONE (22:45)
[2025-01-28 23:10] LABS: BASOPHILS 0.4 % (0.2-1.2); EOSINOPHILS 2.6 % (0.8-7.0); LYMPHOCYTES 29.1 % (21.8-53.1); MCH 33.9 PG (25.7-32.2); MCHC 33.8 g/dL (32.3-36.5); MCV 100.3 fL (79.0-92.2); MONOCYTES 12.8 % (5.3-12.2); NEUTROPHILS 54.9 % (34.0-67.9); RBC 3.92 M/uL (4.63-6.08)
[2025-01-28 23:22] LABS: INR 1.09 (0.80-1.30); PROTIME 13.7 Sec (11.2-14.2)
[2025-01-28 23:33] LABS: LACTIC ACID, BLOOD 2.9 mmol/L (0.4-2.0)
[2025-01-28 23:34] LABS: ALT (SGPT) 26.0 U/L (14-59); AST (SGOT) 21.0 U/L (15-37); GLOMERULAR FILTRATION RATE,EST 52.0 mL/min (>60); PROTEIN, TOTAL 7.2 g/dL (6.4-8.2); UREA NITROGEN 12.0 mg/dL (7-18)
[2025-01-28] MEDS ORDERED: FUROSEMIDE 40 MG/4 ML VIAL IV ONE (23:45)
[2025-01-29 00:51] LABS: LACTIC ACID, BLOOD 2.3 mmol/L (0.4-2.0)
[2025-01-29 01:04] VITALS: BP 117/72
--- NOTE | 2025-01-29 14:37 | EKG ---
[facility] [address] [facility] [place] [address] Signed Junctional rhythm with occasional ventricular-paced complexes Abnormal QRS-T angle, consider primary T wave abnormality Abnormal ECG When compared with ECG of 22-NOV-2024 08:31, Confirmed by Efraín Pearce MD () on 01/29/2025 2:37:38 PM Electronically Signed By: EFRAÍN PEARCE MD 01/29/25 1437 PATIENT NAME: DAY CAIN II Electrocardiogram DATE OF : 46 PHYSICIAN: EFRAÍN PEARCE MD REPORT #: [id number] REPORT IS CONFIDENTIAL AND NOT TO BE RELEASED WITHOUT AUTHORIZATION
== END 2025-01-29 01:05 | disposition home or self-care (01) ==
LOC: ED 22:38
PROVIDERS: Internal Medicine
DX: M54.89 Other dorsalgia (principal); I10 Essential (primary) hypertension; Z95.2 Presence of prosthetic heart valve; Z79.01 Long term (current) use of anticoagulants; Z79.899 Other long term (current) drug therapy
CPT/HCPCS: 36415; 71045; 71275; 74174; 80053; 83605; 83690; 83735; 83880; 84484; 85025; 85379; 85610; 85730; 87040; 93005; 93010; 96374; 96375; 99285-25; J1938; J2270; Q9967

== ENCOUNTER 2025-03-01 08:43 | Emergency (ER) | payer OTHER, MEDICARE ==
[~2025-03-01] VITALS: Ht 160 cm; Wt 76.0 kg
[2025-03-01 09:12] VITALS: BP 135/63
== END 2025-03-01 09:12 | disposition home or self-care (01) ==
LOC: ED 08:43
DX: S60.444A External constriction of right ring finger, initial encounter (principal); I10 Essential (primary) hypertension; Z79.01 Long term (current) use of anticoagulants; Z79.899 Other long term (current) drug therapy; W49.04XA Ring or other jewelry causing external constriction, initial encounter
CPT/HCPCS: 99283

== ENCOUNTER 2025-06-13 16:39 | Emergency (ER) | payer OTHER, MEDICARE ==
[~2025-06-13] VITALS: Ht 160 cm; Wt 74.9 kg
[~2025-06-13 16:39] MED LIST changes: +CELEBREX100 MG; +ELIQUIS5 MG PO; +LAMICTAL25 MG PO; +NORVASC5 MG PO; +POTASSIUM CHLO20 ME2 PO; +QUETIAPINE FUMA50 MG PO
--- OUTSIDE RECORDS SUMMARY | 2025-06-13 16:46 | XMS ---
PreManage Notification: DAY CAIN Security Epic Manager Events No recent Security Events currently on file CRITERIA MET - [facility] - 2 Visits in 30 Days CARE PROVIDERS VIVIANA [facility] Current PHONE: [phone] Yi has no Care Guidelines for this patient. Geoff VISIT COUNT (12 MO.) 4 [facility] TOTAL 4 NOTE: Visits indicate total known visits. ED/UCC VISIT TRACKING (12 MO.) 06/13/2025 16:39 [facility] TYPE: Emergency COMPLAINT: - SHORTNESS OF BREATH 06/11/2025 19:22 [facility] TYPE: Emergency COMPLAINT: - SOB 03/01/2025 08:43 [facility] TYPE: Emergency COMPLAINT: - FOREIGN OBJECT DIAGNOSES: - Essential (primary) hypertension - External constriction of right ring finger, initial encounter - senior care (current) use of anticoagulants - Other half-way (current) drug therapy - Ring or other jewelry causing external constriction, initial encounter 01/28/2025 22:[address] [facility] [place] TYPE: Emergency COMPLAINT: - SOB DIAGNOSES: - Essential (primary) hypertension - senior care (current) use of anticoagulants - Other dorsalgia - Other half-way (current) drug therapy - Presence of prosthetic heart valve INPATIENT VISIT TRACKING (12 MO.) No inpatient visits to display in this time frame [email or web address]
[2025-06-13] MEDS ORDERED: NITROGLYCERIN 0.4 MG SUBL SL PRN (18:00)
[2025-06-13] MEDS ORDERED: ASPIRIN 81 MG CHEW PO SCH (18:00)
[2025-06-13] MEDS ORDERED: MORPHINE SULFATE 4 MG/ML VIAL IV PRN (18:00)
[2025-06-13] MEDS ORDERED: HEPARIN SOD,PORK IN 0.45% NACL 500 ML IV SCH (18:00)
[2025-06-13 18:08] LABS: BASOPHILS 0 % (0.2-1.2); EOSINOPHILS 0.1 % (0.8-7.0); LYMPHOCYTES 5.5 % (21.8-53.1); MCH 33.7 PG (25.7-32.2); MCHC 33.4 g/dL (32.3-36.5); MCV 100.8 fL (79.0-92.2); MONOCYTES 4.5 % (5.3-12.2); NEUTROPHILS 89.5 % (34.0-67.9); RBC 3.80 M/uL (4.63-6.08)
[2025-06-13] MEDS ORDERED: CLOPIDOGREL BISULFATE 75 MG TAB PO ONE (18:15)
[2025-06-13 18:30] LABS: INR 1.35 (0.80-1.30); PROTIME 15.8 Sec (11.2-14.2)
[2025-06-13 18:32] LABS: ALT (SGPT) 23.0 U/L (14-59); AST (SGOT) 21.0 U/L (15-37); GLOMERULAR FILTRATION RATE,EST 53.0 mL/min (>60); PROTEIN, TOTAL 8.0 g/dL (6.4-8.2); UREA NITROGEN 24.0 mg/dL (7-18)
[2025-06-13] MEDS ORDERED: ASPIRIN 81 MG CHEW PO ONE (18:45)
[2025-06-13 18:48] VITALS: BP 211/83
--- NOTE | 2025-06-15 17:42 | EKG ---
[facility] [address] [facility] [place] [address] Signed Atrial flutter with variable AV block with frequent ventricular-paced complexes and with premature ventricular or aberrantly conducted complexes ST \T\ T wave abnormality, consider anterolateral ischemia Abnormal ECG When compared with ECG of 13-JUN-2025 17:28, (Unconfirmed) Previous ECG has undetermined rhythm, needs review Confirmed by Erlin Granados DO ([id number]) on 06/15/2025 5:42:47 PM Electronically Signed By: ERLIN GRANADOS DO 06/15/25 174 PATIENT NAME: DAY CAIN DAVID Electrocardiogram DATE OF : 46 PHYSICIAN: ERLIN GRANADOS DO REPORT #: [id number] REPORT IS CONFIDENTIAL AND NOT TO BE RELEASED WITHOUT AUTHORIZATION
--- NOTE | 2025-06-15 17:42 | EKG ---
[facility] [address] [facility] [place] [address] Signed Atrial-paced rhythm ST \T\ T wave abnormality, consider anterolateral ischemia Abnormal ECG When compared with ECG of 11-JUN-2025 19:33, (Unconfirmed) Current undetermined rhythm precludes rhythm comparison, needs review Confirmed by Giovani Granados DO ([id number]) on 06/15/2025 5:42:34 PM Electronically Signed By: GIOVANI GRANADOS DO 06/15/25 1742 PATIENT NAME: DAY ACIN II Electrocardiogram DATE OF : 46 PHYSICIAN: GIOVANI GRANADOS DO REPORT #: [id number] REPORT IS CONFIDENTIAL AND NOT TO BE RELEASED WITHOUT AUTHORIZATION
== END 2025-06-13 18:53 ==
LOC: ED 16:39
PROVIDERS: Emergency Medicine
DX: I21.3 ST elevation (STEMI) myocardial infarction of unspecified site (principal); I10 Essential (primary) hypertension; Z79.899 Other long term (current) drug therapy
CPT/HCPCS: 36415; 71045; 80053; 83735; 84484; 85025; 85610; 85730; 93005; 93010; 96374; 96375; 99285-25; A9270; J1644